=== PATIENT | female | born 1970 | race African-American/Black ===

== ENCOUNTER → 2019-01-12 | Outpatient (CLI) | payer BC | LOC: RAD 02:52 | DX: Z12.31 Encounter for screening mammogram for malignant neoplasm of breast (principal) ==

== ENCOUNTER → 2019-03-03 | Outpatient (CLI) | payer BC | LOC: RAD 10:16 | DX: M47.816 Spondylosis without myelopathy or radiculopathy, lumbar region (principal); M25.522 Pain in left elbow ==

== ENCOUNTER → 2020-11-27 | Outpatient (CLI) | payer BC | LOC: ULTRA 12:59 | PROVIDERS: ATTEND Nurse Practitioner | DX: K80.20 Calculus of gallbladder without cholecystitis without obstruction (principal); R10.11 Right upper quadrant pain ==

== ENCOUNTER → 2020-12-03 | Outpatient (CLI) | payer BC | LOC: CAT 09:22 | PROVIDERS: ATTEND Nurse Practitioner | DX: R10.9 Unspecified abdominal pain (principal); R11.2 Nausea with vomiting, unspecified; M51.37 Other intervertebral disc degeneration, lumbosacral region ==